=== PATIENT | female | born 1940 | race Caucasian/White ===

== ENCOUNTER → 2017-04-02 | Outpatient (CLI) | payer OTHER ==
[2017-04-02 09:39] LABS: HEMATOCRIT 42.5 % (37.0-47.0); HEMOGLOBIN 14.7 g/dL (12.0-16.0); MEAN CORPUSCULAR HEMOGLOBIN 30.9 PG (27-31); MEAN CORPUSCULAR HGB CONC 34.6 g/dL (33-37); MEAN CORPUSCULAR VOLUME 89.3 FL (81-99); MEAN PLATELET VOLUME 10.2 FL (7.4-12.2); RED BLOOD COUNT 4.76 10^6/uL (4.20-5.40)
[2017-04-02 09:51] LABS: BUN/CREATININE RATIO 14.54 (6-20); CALCIUM 9.2 mg/dL (8.7-10.7); SERUM ALBUMIN 4.2 g/dL (3.5-4.8)
--- NOTE | 2017-04-02 09:52 | EKG ---
[address] [address] Measurements Intervals [place] Rate: 59 P: 62 ND: 181 QRS: 68 QRSD: 93 T: 52 QT: 403 QTc: 403 Interpretive Statements SINUS BRADYCARDIA INTERPRETATION BASED ON A DEFAULT AGE OF 40 YEARS Compared to ECG 09/10/2013 10:46:16 Sinus rhythm no longer present Electronically Signed On [email or web address] 15:34:45 MDT by Antonio Zamora MD [email or web address]
== END ==
LOC: LAB 09:13
DX: M48.06 Spinal stenosis, lumbar region (principal); R00.1 Bradycardia, unspecified
CPT/HCPCS: 36415; 80053; 85027; 86850; 86900; 86901; 93005; 93010